=== PATIENT | male | born 1985 | race Caucasian/White ===

== ENCOUNTER 2016-08-16 19:49 | Emergency (ER) | payer OTHER ==
[~2016-08-16] VITALS: Ht 172.7 cm; Wt 99.8 kg
[2016-08-16 19:50] VITALS: BP 165/68
[2016-08-16] MEDS: AUGMENTIN 875 MG TAB PO ONE (21:51)
[2016-08-16] MEDS: NAPROXEN 250 MG TAB PO ONE (21:52)
[2016-08-16] MEDS ORDERED: AUGM875T27 PO (21:52)
[2016-08-16] MEDS ORDERED: NAPR500T PO (21:52)
== END 2016-08-16 22:01 | disposition home or self-care (01) ==
LOC: M ED 20:54
DX: S61.431A Puncture wound without foreign body of right hand, initial encounter (principal); S01.03XA Puncture wound without foreign body of scalp, initial encounter; W54.0XXA Bitten by dog, initial encounter; Y92.89 Other specified places as the place of occurrence of the external cause; Y93.89 Activity, other specified; Y99.8 Other external cause status; F17.210 Nicotine dependence, cigarettes, uncomplicated

== ENCOUNTER 2019-07-24 10:34 | Emergency (ER) | payer OTHER ==
[~2019-07-24] VITALS: Ht 170.2 cm; Wt 115.4 kg
[~2019-07-24 10:34] MED LIST: AUGM875T28 PO; NAPR-837 PO
--- NOTE | 2019-07-24 12:14 | REP ---
Right hand four views : There is no fracture or dislocation. Mineralization and joint spaces are normal. There are no calcifications or foreign bodies. Impression: Negative right hand . Electronically Signed by Regino Naranjo MD 07/24/2019 12:05 P
[2019-07-24] MEDS ORDERED: DERMABOND TOPICAL SKIN ADHESIVE TOP ONE (13:00)
[2019-07-24] MEDS ORDERED: ADACEL/BOOSTRIX VACCINE (DIPHTH/PERTUSS/ACELL/TETANUS)0.5ML SYR (90715) IM ONE (13:00)
[2019-07-24 13:17] VITALS: BP 147/80
== END 2019-07-24 13:31 | disposition home or self-care (01) ==
LOC: M ED 10:34
DX: S61.411A Laceration without foreign body of right hand, initial encounter (principal); S60.511A Abrasion of right hand, initial encounter; W25.XXXA Contact with sharp glass, initial encounter; Y92.099 Unspecified place in other non-institutional residence as the place of occurrence of the external cause; Y93.89 Activity, other specified; Y99.9 Unspecified external cause status